=== PATIENT | female | born 2000 | race Hispanic/Latino ===

== ENCOUNTER 2025-02-05 12:34 | Emergency (ER) | payer SELFPAY ==
[~2025-02-05] VITALS: Ht 157.5 cm; Wt 99.3 kg
--- NOTE | 2025-02-05 12:55 | ERN ---
ED Note History of Present Illness Stated Complaint: ABDOMINAL PAIN Chief Complaint: Abdominal Pain Time Seen by MD: 12:44 Dictation: IN HIS A 24-YEAR-OLD FEMALE COMING IN TODAY WITH A EPIGASTRIC PAIN, DIARRHEA X3 WITH NAUSEA VOMITING X1. AFEBRILE IN TRIAGE. ONSET THIS MORNING. SHE STATES IT STARTS IN HER EPIGASTRIC AREA AND MOVES DOWN. NO FEVER NO CHILLS. NO HISTORY OF PANCREATITIS DIVERTICULITIS OR GASTRITIS. NO PRIMARY CARE DOCTOR. Allergies: Coded Allergies: No Known Drug Allergies (Unverified Allergy, Unknown, 02/05/25) Past Medical History Past Medical History: No Pertinent History Surgical History: None RN Note Reviewed/Agreed w/PFSH: Yes Review of System Dictation CONSTITUTIONAL: NEGATIVE EXCEPT FOR HPI HEAD/FACE: NEGATIVE EXCEPT FOR HPI EENT: NEGATIVE EXCEPT FOR HPI RESPIRATORY: NEGATIVE EXCEPT FOR HPI GASTROINTESTINAL/ABDOMINAL: NEGATIVE EXCEPT FOR HPI EPIGASTRIC PAIN WITH NAUSEA VOMITING GENITOURINARY: NEGATIVE EXCEPT FOR HPI MUSCULOSKELETAL: NEGATIVE EXCEPT FOR HPI INTEGUMENTARY: NEGATIVE EXCEPT FOR HPI NEUROLOGICAL/PSYCH: NEGATIVE EXCEPT FOR HPI HEMATOLOGIC/LYMPHATIC: NEGATIVE EXCEPT FOR HPI ALL SYSTEMS NEGATIVE, EXCEPT NOTED ABOVE. 13 POINT REVIEW OF SYSTEMS ASSESSED AND ALL NEGATIVE EXCEPT FOR ABOVE. Initial Vital Sign VS Vital Signs Date Time Temp Pulse Resp B/P (MAP) Pulse Ox O2 Delivery O2 Flow Rate FiO2 02/05/25 12:40 98.2 80 16 179/101 99 Room Air 0 02/05/25 14:06 21 Physical Exam Dictation VITAL SIGNS REVIEWED GENERAL APPEARANCE: ALERT, ORIENTED X 3, MILD ACUTE DISTRESS, WELL DEVELOPED, NOURISHED. HEAD AND FACE: NON-TRAUMATIC. EYES: PERRL, PINK CONJUNCTIVAS, EYELID NO TRAUMA, ANTERIOR CHAMBER WITH ARCUS SENILIS. EARS: PINNAS INTACT AND NO SIGNS OF TRAUMA OR ERYTHEMA EAR CANALS CLEAR AND NO DISCHARGE TM NO ERYTHEMA NOSE: NO DISCHARGE, NO BLEEDING. OROPHARYNX: MOUTH NORMAL, TONGUE PINK, PHARYNX CLEAR,NO ERYTHEMA, TONSILS NO EXUDATES, NO ABSCESSES NOTED, MUCOUS MEMBRANE MOIST NECK: SUPPLE, NON-TENDER, NO THYROMEGALY, NO MASSES, NO JVD, NO BRUITS BREAST:DEFERRED CHEST:NO TENDERNESS, NO CREPITUS, NO PARADOXICAL MOVEMENT, NO RETRACTIONS LUNGS:CLEAR, WELL-VENTILATED, SYMMETRIC, NO RALES, NO WHEEZING, NO RHONCHI, NO STRIDOR, GOOD BREATH SOUNDS BILATERALLY HEART: REGULAR RATE, REGULAR RHYTHM, NO MURMUR, NO GALLOPS VASCULAR: NO PERIPHERAL EDEMA, ABDOMEN: SOFT, POSITIVE BOWEL SOUNDS, NONDISTENDED, NO GUARDING, EPIGASTRIC PAIN WITH NAUSEA VOMITING. RECTAL: DEFERRED GENITAL: DEFERRED NEUROLOGICAL: NORMAL SPEECH, MOTOR FUNCTION INTACT, SENSORY FUNCTION INTACT MUSCULOSKELETAL: NECK NONTENDER, FULL RANGE OF MOTION, BACK NONTENDER, FULL RANGE OF MOTION, EXTREMITIES: NONTENDER, FULL RANGE OF MOTION SKIN: COLOR PINK, DRY, NO TURGOR, NO RASH, NO LACERATIONS, NO ABRASIONS, NO CONTUSIONS. LYMPHATIC: DEFERRED Results (Laboratory/Radiology) Laboratory/Radiology Laboratory Tests Test 02/05/25 12:56 02/05/25 14:20 White Blood Count 13.4 K/uL (4.8-10.8) H Red Blood Count 4.74 MIL/uL (4.00-5.50) Hemoglobin 14.2 g/dL (12.0-16.0) Hematocrit 43.4 % (36-48) Mean Corpuscular Volume 91.6 fL (79-99) Mean Corpuscular Hemoglobin 30.0 pg (27.0-33.0) Mean Corpuscular Hemoglobin Concent 32.7 g/dL (32.0-36.0) Red Cell Distribution Width 13.5 % (11.0-15.5) Platelet Count 261 K/uL (130-400) Mean Platelet Volume 9.6 fL (7.5-10.5) Immature Granulocyte % (Auto) 0.8 % (0-1) Neutrophils (%) (Auto) 68.1 % (40.0-77.0) Lymphocytes (%) (Auto) 23.5 % (21.0-51.0) Monocytes (%) (Auto) 5.5 % (3.0-13.0) Eosinophils (%) (Auto) 1.6 % (0.0-8.0) Basophils (%) (Auto) 0.5 % (0.0-5.0) Neutrophils # (Auto) 9.1 K/uL (1.8-7.7) H Lymphocytes # (Auto) 3.2 K/uL (1.0-4.8) Monocytes # (Auto) 0.7 K/uL (0.1-1.0) Eosinophils # (Auto) 0.21 K/uL (0.00-0.70) Basophils # (Auto) 0.07 K/uL (0.00-0.20) Absolute Immature Granulocyte (auto 0.11 K/uL (0-1) Nucleated Red Blood Cells 0.0 % (0.0-0.19) Sodium Level 138 mmol/L (136-145) Potassium Level 4.2 mmol/L (3.5-5.1) Chloride Level 102 mmol/L (101-111) Carbon Dioxide Level 27 mmol/L (21-32) Blood Urea Nitrogen 8 mg/dL (7-18) Creatinine 0.6 mg/dL (0.5-1.0) Glomerular Filtration Rate Calc 128 mL/min (>90) Random Glucose 97 mg/dL (70-105) Total Calcium 8.3 mg/dL (8.5-10.1) L Lipase 36 U/L (16-77) Urine Color LIGHT-YELLOW (YELLOW) Urine Appearance CLEAR (CLEAR) Urine pH 6.5 (5.0-8.0) Urine Specific Hume 1.012 (1.001-1.031) Urine Protein NEGATIVE mg/dL (NEGATIVE) Urine Glucose (UA) NEGATIVE mg/dL (NEGATIVE) Urine Ketones NEGATIVE mg/dL (NEGATIVE) Urine Occult Blood NEGATIVE (NEGATIVE) Urine Nitrate NEGATIVE (NEGATIVE) Urine Bilirubin NEGATIVE mg/dL (NEGATIVE) Urine Urobilinogen 0.2 mg/dL (0.2-1.0) Urine Leukocyte Esterase NEGATIVE Jason/uL Urine HCG, Qualitative NEGATIVE (NEGATIVE) intrahepatic/extrahepatic biliary ductal dilatation is identified. Portal vein, hepatic veins, and inferior vena cava are normal in caliber. GALL BLADDER: Gallbladder demonstrates normal wall thickness and smooth contour with homogeneous intraluminal fluid density. No intraluminal mass, calcification, or gallstone is seen. Pericholecystic fat and the cystic duct appear normal. PANCREAS: Pancreas is normal in size, morphology, and attenuation. The main pancreatic duct is not dilated. No peripancreatic fluid collection or inflammatory fat stranding is seen. SPLEEN: Spleen is normal in size, morphology, and attenuation without focal lesion. KIDNEYS: Both kidneys are normal in size, shape, position, and attenuation. No renal mass, calcification, or stone is identified in the renal parenchyma or collecting systems. No hydronephrosis or other signs of obstructive uropathy are detected on either side. GIT /T/ PERITONEAL CAVITY: Stomach is distended but otherwise unremarkable. The gastroesophageal junction, pylorus, and duodenum appear normal. Jejunal and ileal loops show normal distribution, caliber, and wall thickness without evidence of obstruction or significant inflammatory change. The appendix is not thickened and shows no surrounding fat stranding, with no CT evidence of acute appendicitis. There are tiny colonic diverticula without CT signs of diverticulitis. Rectum and large bowel loops are well distended with fecal material, without discrete focal mural thickening or pericolonic stranding. No free intraperitoneal fluid or pneumoperitoneum is identified. Mesenteric fat and omentum are normal. LYMPHNODES: No pathologically enlarged abdominopelvic lymph nodes are identified. RETROPERITONEUM: Both adrenal glands are normal in morphology and attenuation. The abdominal aorta and inferior vena cava are in normal position and caliber without aneurysm or dissection. PELVIS: Urinary bladder wall thickness and contour are normal on the delayed phase, with uniform opacified lumen and no intraluminal filling defects. Uterus appears normal for age. Dominant follicles are present in both ovaries, without adnexal mass or free pelvic fluid. MUSCULOSKELETAL: Visualized osseous structures are unremarkable without acute fracture, destructive lesion, or significant degenerative change. OTHER: Extra-abdominal and paraspinal soft tissues are unremarkable. IMPRESSION: * No CT evidence of acute intra-abdominal or pelvic inflammatory process, obstruction, or perforation to explain the reported periumbilical and epigastric pain with nausea and vomiting. * Hepatomegaly with diffuse hepatic steatosis. Correlate with liver function tests and metabolic risk factors (obesity, diabetes, dyslipidemia, alcohol use); lifestyle and medical risk-factor modification should be considered as per clinical guidelines. * Tiny colonic diverticulosis without diverticulitis and fecal loading of the large bowel, compatible with constipation, which may contribute to abdominal discomfort; correlate with bowel habits and treat constipation as clinically indicated. * Normal pancreas, biliary tree, kidneys, and delayed-phase urinary bladder without evidence of obstructive uropathy, cholecystitis, or renal/collecting system calculus. /[facility] Labs Reviewed?: Yes ED Course ED Course Orders Procedure Category Date Status Time Cbc With Differential LAB 02/05/25 Complete : ,Urine Test LAB 02/05/25 Complete : Urinalysis Profile LAB 02/05/25 Complete 12:47 0.9%Nacl 1000ml (Ns PHA 02/05/25 Complete 1000ml) 13:00 Ondansetron 4mg Inj PHA 02/05/25 Complete (Zofran 4mg Inj) 13:00 Famotidine 20mg Vial PHA 02/05/25 Complete (Pepcid 20mg Vial) 13:00 Lipase LAB 02/05/25 Complete 12:47 Basic Metabolic Panel LAB 02/05/25 Complete 12:47 Ct Abdomen/Pelvis CT 02/05/25 Resulted W/Contrast 14:47 Iohexol (Omnipaque) PHA 02/05/25 Complete 15:11 Current Medications Medications (Trade) Dose Ordered Sig/Gilbert Route PRN Reason Start Time Stop Time Status Last Admin Dose Admin Famotidine (Pepcid 20mg Vial) 20 mg ONCE ONCE IV 02/05/25 13:00 02/05/25 13:01 DC 02/05/25 13:40 Iohexol (Omnipaque) 75 ml STK-MED ONCE IV 02/05/25 15:11 02/05/25 15:11 DC Ondansetron HCl (zoFRAN 4MG INJ) 4 mg ONCE ONCE IVP 02/05/25 13:00 02/05/25 13:01 DC 02/05/25 13:40 Sodium Chloride 1,000 ml @ 0 mls/hr ONCE ONCE IV 02/05/25 13:00 02/05/25 13:01 DC 02/05/25 13:39 Vital Signs Date Time Temp Pulse Resp B/P (MAP) Pulse Ox O2 Delivery O2 Flow Rate FiO2 02/05/25 14:06 98.4 73 19 135/85 99 Room Air* 0 21 02/05/25 12:40 98.2 80 16 179/101 99 Room Air 0 1625/PATIENT FEELS MARKEDLY IMPROVED AFTER FLUIDS MEDICATIONS. NO NAUSEA VOMITING IN TRIAGE. SHE IS AWARE OF LABS TO INCLUDE CT FINDINGS Medical Decision Making MDM MDM: DIFFERENTIAL DIAGNOSIS: APPENDICITIS/DIVERTICULITIS/PANCREATITIS/HERNIA/ELECTROLYTE IMBALANCE/DEHYDRATION//UTI RATIONALE: TESTS CONSIDERED AND ORDERED SECONDARY TO SHARED DECISION MAKING INCLUDE: LABS/RADIOLOGY PREVIOUS OUTSIDE RECORDS REVIEWED: OLD ER VISITS. RISK OF COMPLICATION AND/OR MORBIDITY OR MORTALITY OF PATIENT MANAGEMENT: NONE MEDICATIONS-PER MEDICATION RECONCILIATION NEED FOR HOSPITALIZATION: PATIENT DOES NOT MEET CRITERIA FOR HOSPITALIZATION. NONE NEED FOR EMERGENCY MAJOR/MINOR SURGERY: NO THERE ARE NO SOCIAL CONCERNS WITH THIS PATIENT. PRESCRIPTION DRUG MANAGEMENT BENTYL/ZOFRAN PRESCRIPTIONS WILL INCLUDE SYMPTOMATIC CARE PATIENT'S PRIOR EXTERNAL MEDICAL RECORDS FROM OTHER ER VISITS WERE REVIEWED BY ME INDICATED. PRIOR TESTING AND RESULTS FROM PREVIOUS VISITS WERE REVIEWED. PRIOR TESTS WERE TAKEN INTO ACCOUNT WITH MEDICAL DECISION MAKING AND RESOURCE UTILIZATION, INDEPENDENT HISTORIAN/HISTORIANS WERE USED TO OBTAIN COMPLETE MEDICAL HISTORY. I INDEPENDENTLY INTERPRETED THE TEST THAT WERE PERFORMED, RESULTS WERE REVIEWED BY ME AND CONSIDERED FINDINGS ON RADIOLOGY IF ORDERED. MEDICAL MANAGEMENT AND EXAMINATION INTERPRETATION DISCUSSIONS WERE HAD BY ME WITH OTHER QUALIFIED HEALTHCARE PROFESSIONALS INDICATED FOR THE PATIENT'S CARE. DX & DISP Disposition: Discharge Departure Impression: Primary Impression: Viral gastroenteritis Additional Impression: Nausea & vomiting Condition: Stable Scripts Pantoprazole Sodium (Protonix) 40 Mg Ectab 1 TAB PO DAILY for 30 Days, #30 TAB 0 Refills Prov: RASHEED ARORA [employer] 02/05/25 Dicyclomine HCl (Bentyl) 20 Mg Tab 20 MG PO Q6HPRN PRN for ABDOMINAL CRAMPS PAIN, #15 TAB Prov: RASHEED ARORA [employer] 02/05/25 Ondansetron (Ondansetron Odt) 4 Mg Tab.rapdis 4 MG PO Q6HPRN PRN for nausea, #16 TAB 0 Refills Prov: RASHEED ARORA [employer] 02/05/25 Additional Instructions: FOLLOW-UP WITH PRIMARY CARE PROVIDER IN 1 TO 2 DAYS. TAKE MEDICATIONS DIRECTED HERE IN THE EMERGENCY ROOM. OKAY TO CONTINUE HOME MEDICATIONS UNLESS OTHERWISE DISCUSSED DURING YOUR VISIT IN THE EMERGENCY ROOM TODAY. RETURN TO YOUR NEAREST EMERGENCY ROOM IF SYMPTOMS WORSEN OR IF THERE IS NO IMPROVEMENT. CALL 911 IF YOU NEED IMMEDIATE ASSISTANCE. TAKE TYLENOL OR MOTRIN [id number] NEEDED AND IF NO CONTRAINDICATIONS ARE PRESENT. INCREASE ORAL HYDRATION. A WOUND CULTURE OR URINE CULTURE WAS ORDERED HERE IN THE EMERGENCY ROOM DEPARTMENT PLEASE FOLLOW-UP WITH PRIMARY CARE PROVIDER AND ADVISE THEM TO GET REPEAT PORTS FROM OUR FACILITY. IF YOU HAD ANY AMOR WRAP/SPLINTS THAT WERE APPLIED HERE, PLEASE DO NOT REMOVE THEM UNTIL YOU SEE YOUR PRIMARY CARE OR SPECIALTY. CLEAR LIQUID DIET FOR THE NEXT18 HOURS AND THEN ADVANCE DIET SLOWLY TO REGULAR. TAKE BENTYL DIRECTED FOR ABDOMINAL PAIN SEE YOUR PRIMARY CARE DOCTOR FOLLOW UP IN 1-2 DAYS. Referrals: SELF,REFERRAL (PCP) Time of Disposition: 16:27 I have reviewed the case, and I agree with, Diagnosis and Plan RASHEED ARORA [facility] Feb 05, 2025 12:55
[2025-02-05 13:04] LABS: IMMATURE GRANULOCYTE ABSOLUTE 0.11 K/uL (0-1); NUCLEATED RED BLOOD CELLS 0.0 % (0.0-0.19); PLATELET COUNT (AUTO) 261 K/uL (130-400); RED BLOOD CELL COUNT(AUTO) 4.74 MIL/uL (4.00-5.50); RED CELL DISTRIBUTION WIDTH 13.5 % (11.0-15.5); WHITE BLOOD COUNT (AUTO) 13.4 K/uL (4.8-10.8)
[2025-02-05 13:12] LABS: CREATININE 0.6 mg/dL (0.5-1.0); GLOMERULAR FILTR. RATE CALC 128.0 mL/min (>90); GLUCOSE,RANDOM 97.0 mg/dL (70-105); SODIUM SERUM 138.0 mmol/L (136-145); UREA NITROGEN, BLOOD 8.0 mg/dL (7-18)
[2025-02-05] MEDS: 0.9%NACL 1000ML 1,000 ML IV ONE (13:39)
[2025-02-05] MEDS: FAMOTIDINE 20MG VIAL IV ONE (13:40)
[2025-02-05 14:32] LABS: APPEARANCE,URINE CLEAR (CLEAR); GLUCOSE, URINE (UA) NEGATIVE (NEGATIVE); LEUKOCYTE ESTERASE ,URINE NEGATIVE Leu/uL (NEGATIVE); NITRATE,URINE NEGATIVE (NEGATIVE); OCCULT BLOOD,URINE NEGATIVE (NEGATIVE)
[2025-02-05 14:35] LABS: ADD UA MICROSCOPIC NO
[2025-02-05 14:44] LABS: HCG,QUALITATIVE URINE NEGATIVE (NEGATIVE)
[2025-02-05] MEDS ORDERED: IOHEXOL-350 75 ML VIAL IV ONE (15:11)
--- NOTE | 2025-02-05 16:15 | HMCIMG ---
EXAM: CT SCAN OF THE ABDOMEN AND PELVIS WITH CONTRAST Clinical statement: Periumbilical and epigastric pain with nausea and vomiting. STUDY PROTOCOL: CT radiation dose protocol was performed in accordance with the principles of ALARA. A multislice CT scan of the abdomen and pelvis was performed with intravenous contrast, including a 7-minute renal/bladder delayed phase. Sections were obtained from the diaphragms to the inguinal region. RADIATION DOSE: CTDIvol 46.10 mGy; DLP 2185.00 mGycm. CONTRAST: Standard dose of intravenous contrast administered. COMPARISON: None provided. FINDINGS: LUNG BASE: No evidence of pleural effusion, collapse, or consolidation is seen in the visualized lung bases. LIVER: Liver is enlarged, measuring approximately 19 cm in craniocaudal dimension, with smooth margins. Attenuation is diffusely decreased, compatible with hepatic steatosis. No focal hepatic lesion, calcification, or intrahepatic/extrahepatic biliary ductal dilatation is identified. Portal vein, hepatic veins, and inferior vena cava are normal in caliber. GALL BLADDER: Gallbladder demonstrates normal wall thickness and smooth contour with homogeneous intraluminal fluid density. No intraluminal mass, calcification, or gallstone is seen. Pericholecystic fat and the cystic duct appear normal. PANCREAS: Pancreas is normal in size, morphology, and attenuation. The main pancreatic duct is not dilated. No peripancreatic fluid collection or inflammatory fat stranding is seen. SPLEEN: Spleen is normal in size, morphology, and attenuation without focal lesion. KIDNEYS: Both kidneys are normal in size, shape, position, and attenuation. No renal mass, calcification, or stone is identified in the renal parenchyma or collecting systems. No hydronephrosis or other signs of obstructive uropathy are detected on either side. GIT /T/ PERITONEAL CAVITY: Stomach is distended but otherwise unremarkable. The gastroesophageal junction, pylorus, and duodenum appear normal. Jejunal and ileal loops show normal distribution, caliber, and wall thickness without evidence of obstruction or significant inflammatory change. The appendix is not thickened and shows no surrounding fat stranding, with no CT evidence of acute appendicitis. There are tiny colonic diverticula without CT signs of diverticulitis. Rectum and large bowel loops are well distended with fecal material, without discrete focal mural thickening or pericolonic stranding. No free intraperitoneal fluid or pneumoperitoneum is identified. Mesenteric fat and omentum are normal. LYMPHNODES: No pathologically enlarged abdominopelvic lymph nodes are identified. RETROPERITONEUM: Both adrenal glands are normal in morphology and attenuation. The abdominal aorta and inferior vena cava are in normal position and caliber without aneurysm or dissection. PELVIS: Urinary bladder wall thickness and contour are normal on the delayed phase, with uniform opacified lumen and no intraluminal filling defects. Uterus appears normal for age. Dominant follicles are present in both ovaries, without adnexal mass or free pelvic fluid. MUSCULOSKELETAL: Visualized osseous structures are unremarkable without acute fracture, destructive lesion, or significant degenerative change. OTHER: Extra-abdominal and paraspinal soft tissues are unremarkable. IMPRESSION: * No CT evidence of acute intra-abdominal or pelvic inflammatory process, obstruction, or perforation to explain the reported periumbilical and epigastric pain with nausea and vomiting. * Hepatomegaly with diffuse hepatic steatosis. Correlate with liver function tests and metabolic risk factors (obesity, diabetes, dyslipidemia, alcohol use); lifestyle and medical risk-factor modification should be considered as per clinical guidelines. * Tiny colonic diverticulosis without diverticulitis and fecal loading of the large bowel, compatible with constipation, which may contribute to abdominal discomfort; correlate with bowel habits and treat constipation as clinically indicated. * Normal pancreas, biliary tree, kidneys, and delayed-phase urinary bladder without evidence of obstructive uropathy, cholecystitis, or renal/collecting system calculus. /[place]
[2025-02-05 17:09] VITALS: BP 124/48; PULSE 69; RESP 16; TEMP 98.1; O2SAT 99
--- NOTE | 2025-02-05 17:10 | NUR ---
DC PATIENT WAS DC'D BY RASHEED ARORA NP , I DC'D PATIENTS IV WITH CATH STILL INTACT AND APPLIED 2X2 GAUZE WITH COBAN I EXPLAINED TO PATIENT TO FOLLOW UP WITH PCP, PROVIDED INFO BASED ON DIAGNOSIS, PRESCRIPTIONS, AND ANSWERED ANY FOLLOW UP QUESTIONS PATIENT AMBULATED OUT OF ED, NO COMPLICATIONS
== END 2025-02-05 17:09 | disposition home or self-care (01) ==
LOC: EDH 12:34
DX: A08.4 Viral intestinal infection, unspecified (principal); E11.9 Type 2 diabetes mellitus without complications; E66.9 Obesity, unspecified; E78.5 Hyperlipidemia, unspecified
CPT/HCPCS: 99285; 74177; 96374; 96361; 96375; 80048; 83690; 85025; 81003; 81025; 36415; J1308; J7030; J2405; Q9967